=== PATIENT | male | born 1975 | race Caucasian/White ===

== ENCOUNTER 2017-03-12 19:51 | Emergency (ER) | payer OTHER ==
[2017-03-13 00:40] LABS: BASOPHIL % 0.8 % (0-2); RED CELL DISTRIBUTION WIDTH 14.3 % (11.5-14.5)
[2017-03-13 00:47] LABS: CALCIUM 7.1 mg/dL (8.5-10.1); CARBON DIOXIDE 29.2 mmol/L (21-32); CHLORIDE SERUM 105 mmol/L (98-107); CREATININE SERUM 1.1 mg/dL (0.7-1.3); GFR1 > 60 mL/min; GLUCOSE SERUM 113 mg/dL (74-106); POTASSIUM SERUM 3.1 mmol/L (3.5-5.1); SODIUM SERUM 138 mmol/L (136-145)
[2017-03-13 00:51] LABS: ALKALINE PHOSPHATASE 187 U/L (46-116); ALT/SGPT 62 U/L (16-63); AST/SGOT 108 U/L (15-37); BILIRUBIN TOTAL 1.07 mg/dL (0.20-1.00)
[2017-03-13 00:52] LABS: ALBUMIN 1.6 g/dL (3.4-5.0); TOTAL PROTEIN, SERUM 5.3 g/dL (6.4-8.2)
[2017-03-13 01:33] LABS: PLATELET COUNT 49 x10^3mcL (130-400)
[2017-03-13 01:39] VITALS: BP 95/56
== END 2017-03-13 01:39 | disposition home or self-care (01) ==
LOC: ED 19:51
PROVIDERS: Emergency Medicine
DX: R18.8 Other ascites (principal); K74.60 Unspecified cirrhosis of liver; E87.6 Hypokalemia; F10.20 Alcohol dependence, uncomplicated; Y90.9 Presence of alcohol in blood, level not specified
CPT/HCPCS: 36415

== ENCOUNTER 2019-08-15 16:30 | Inpatient (IN) | payer OTHER ==
[~2019-08-15] VITALS: Ht 154.9 cm; Wt 59.0 kg
[2019-08-15 16:45] VITALS: Ht 154.9 cm; Wt 59.0 kg
[2019-08-15 18:19] LABS: CALCIUM 7.5 mg/dL (8.5-10.1); CARBON DIOXIDE 21.9 mmol/L (21-32); CREATININE SERUM 2.3 mg/dL (0.7-1.3)
[2019-08-15 18:24] LABS: BASOPHIL % 0.1 % (0-2); BILIRUBIN TOTAL 1.6 mg/dL (0.20-1.00); C REACTIVE PROTEIN 9.6 mg/dL (<=0.9); PLATELET COUNT 81 x10^3mcL (130-400); RED CELL DISTRIBUTION WIDTH 13.4 % (11.5-14.5); URIC ACID 9.7 mg/dL (3.5-7.2)
[2019-08-15 18:34] LABS: ALBUMIN 1.4 g/dL (3.4-5.0); TOTAL PROTEIN, SERUM 6.1 g/dL (6.4-8.2)
[2019-08-15 19:16] LABS: ERYTHROCYTE SED RATE 93 mm/hr (0-15)
[2019-08-16 00:12] VITALS: BP 110/63
[2019-08-16 05:40] VITALS: BP 111/59
[2019-08-16 08:17] LABS: BILIRUBIN TOTAL 1.96 mg/dL (0.20-1.00); CALCIUM 7.6 mg/dL (8.5-10.1); CARBON DIOXIDE 20.8 mmol/L (21-32); CREATININE SERUM 2.3 mg/dL (0.7-1.3); MAGNESIUM 1.6 mg/dL (1.8-2.4); POTASSIUM SERUM 3.1 mmol/L (3.5-5.1)
[2019-08-16 08:38] LABS: ALBUMIN 1.2 g/dL (3.4-5.0); TOTAL PROTEIN, SERUM 5.3 g/dL (6.4-8.2)
[2019-08-16 09:35] VITALS: BP 102/57
[2019-08-16 09:57] LABS: BASOPHIL % 0.2 % (0-2); PLATELET COUNT 68 x10^3mcL (130-400); RED CELL DISTRIBUTION WIDTH 13.3 % (11.5-14.5)
[2019-08-16 14:21] VITALS: BP 104/62
[2019-08-16 16:47] VITALS: BP 106/66
[2019-08-16 20:29] VITALS: BP 99/59
[2019-08-17 05:26] VITALS: BP 102/55
[2019-08-17 06:40] LABS: BASOPHIL % 0.6 % (0-2); RED CELL DISTRIBUTION WIDTH 13.6 % (11.5-14.5)
[2019-08-17 06:53] LABS: BILIRUBIN TOTAL 0.7 mg/dL (0.20-1.00); CALCIUM 7.4 mg/dL (8.5-10.1); CARBON DIOXIDE 19.9 mmol/L (21-32); CREATININE SERUM 2.2 mg/dL (0.7-1.3); MAGNESIUM 1.8 mg/dL (1.8-2.4)
[2019-08-17 07:01] LABS: ALBUMIN 1.1 g/dL (3.4-5.0); TOTAL PROTEIN, SERUM 5.4 g/dL (6.4-8.2)
[2019-08-17 07:16] LABS: PLATELET COUNT 72 x10^3mcL (130-400)
[2019-08-17 07:49] VITALS: BP 101/60
[2019-08-17] MEDS ORDERED: BACTRIM DS1 TAB PO (10:14)
[2019-08-17 10:27] VITALS: BP 101/60
== END 2019-08-17 11:58 | disposition home or self-care (01) | DRG 383 ==
LOC: ED 16:30 → MU 19:51
PROVIDERS: Emergency Medicine; Internal Medicine Pulmonary Disease; ADMIT Internal Medicine
DX: L03.116 Cellulitis of left lower limb (principal); N17.9 Acute kidney failure, unspecified; K70.30 Alcoholic cirrhosis of liver without ascites; E87.1 Hypo-osmolality and hyponatremia; I73.9 Peripheral vascular disease, unspecified; E87.6 Hypokalemia; D63.1 Anemia in chronic kidney disease; N18.9 Chronic kidney disease, unspecified; Z79.899 Other long term (current) drug therapy
CPT/HCPCS: G0378; J0295; J2543; J3370; J7030; J7050; Q0092

== ENCOUNTER 2020-04-15 09:41 | Emergency (ER) | payer OTHER ==
[~2020-04-15] VITALS: Ht 157.5 cm; Wt 59.0 kg
[~2020-04-15 09:41] MED LIST: BACTRIM DS1 TAB PO
[2020-04-15 09:48] VITALS: Ht 157.5 cm; Wt 59.0 kg
[2020-04-15 10:28] LABS: BASOPHIL % 0.9 % (0.2-1.5); PLATELET COUNT 141 x10^3mcL (152-348)
[2020-04-15 10:33] LABS: CALCIUM 7.9 mg/dL (8.5-10.1); CARBON DIOXIDE 19.5 mmol/L (21-32); CHLORIDE SERUM 104 mmol/L (98-107); CREATININE SERUM 1.2 mg/dL (0.7-1.3); GFR1 > 60 mL/min; GLUCOSE SERUM 93 mg/dL (74-106); POTASSIUM SERUM 3.7 mmol/L (3.5-5.1); SODIUM SERUM 134 mmol/L (136-145)
[2020-04-15 10:42] LABS: ALKALINE PHOSPHATASE 169 U/L (46-116); ALT/SGPT 17 U/L (16-63); AST/SGOT 38 U/L (15-37); BILIRUBIN TOTAL 0.8 mg/dL (0.20-1.00); LIPASE 200 IU/L (73-393); TOTAL PROTEIN, SERUM 7.1 g/dL (6.4-8.2)
[2020-04-15 10:43] LABS: ALBUMIN 1.9 g/dL (3.4-5.0)
[2020-04-15 10:49] LABS: RED CELL DISTRIBUTION WIDTH 15.2 % (12.1-16.2)
[2020-04-15 10:50] LABS: rbc morphology (normal/abnorm) NORMAL (NORMAL)
[2020-04-15 15:57] VITALS: BP 104/54
== END 2020-04-15 15:58 | disposition home or self-care (01) ==
LOC: ED 09:41
DX: R10.9 Unspecified abdominal pain (principal); D64.9 Anemia, unspecified

== ENCOUNTER 2020-04-16 10:20 | Emergency (ER) | payer OTHER ==
[~2020-04-16] VITALS: Ht 162.6 cm; Wt 58.5 kg
[2020-04-16 10:32] VITALS: BP 105/64; Ht 162.6 cm; Wt 58.5 kg
== END 2020-04-16 14:49 | disposition left against medical advice (07) ==
LOC: ED 10:20
DX: Z53.21 Procedure and treatment not carried out due to patient leaving prior to being seen by health care provider (principal)